=== PATIENT | male | born 2000 | race Caucasian/White ===

== ENCOUNTER 2023-02-25 17:08 | Emergency (ER) | payer MEDICAID, OTHER ==
[~2023-02-25] VITALS: Ht 175.3 cm; Wt 65.8 kg
[2023-02-25 18:25] LABS: BASO # 0.1 10^3/uL (0.0-0.2); BASO % 0.2 % (0.0-1.0); HEMATOCRIT 52.2 % (42.0-52.0); HEMOGLOBIN 18.4 g/dl (13.5-17.5); LYMPH # 1.2 10^3/uL (1.5-5.0); LYMPH % 5.5 % (24.0-44.0); MEAN CORPUSCULAR HEMOGLOBIN 30.4 pg (27.0-33.0); MEAN CORPUSCULAR HGB CONC 35.2 g/dl (32.0-36.5); MEAN CORPUSCULAR VOLUME 86.3 fl (80.0-96.0); MONO % 8.4 % (2.0-8.0); NEUTROPHILS # 17.7 10^3/uL (1.5-8.5); NEUTROPHILS % 85.4 % (36.0-66.0); PLATELET COUNT, AUTOMATED 287 10^3/uL (150-450); RED BLOOD COUNT 6.05 10^6/uL (4.30-6.10); WHITE BLOOD COUNT 20.8 10^3/uL (4.0-10.0)
[2023-02-25 18:31] LABS: INR 1.11
[2023-02-25 18:32] LABS: PARTIAL THROMBOPLASTIN TIME 32.5 SECONDS (24.8-34.2)
[2023-02-25 18:44] LABS: LIPASE 22 U/L (12-53)
[2023-02-25 18:45] LABS: AMYLASE 95 U/L (30-118)
[2023-02-25 18:46] LABS: ALBUMIN 5.1 G/DL (3.2-5.2); ALKALINE PHOSPHATASE 103 U/L (46-116); ALT/SGPT 38 U/L (7.0-40); AST/SGOT 16 U/L (<34); BILIRUBIN,DIRECT 0.3 MG/DL (<0.4); BILIRUBIN,TOTAL 1.1 MG/DL (0.3-1.2); BLOOD UREA NITROGEN 25 MG/DL (9-23); CALCIUM LEVEL 10.4 MG/DL (8.5-10.1); CARBON DIOXIDE LEVEL 26 MMOL/L (20-31); CHLORIDE LEVEL 100 MMOL/L (98-107); CREATININE FOR GFR 0.78 MG/DL (0.70-1.30); GLOMERULAR FILTRATION RATE > 60.0 (>60); GLUCOSE, FASTING 129 MG/DL (60-100); SODIUM LEVEL 139 MMOL/L (136-145)
[2023-02-25 18:54] LABS: MONO # 1.7 10^3/uL (0.0-0.8)
[2023-02-25] MEDS ORDERED: NS 1,000 ML IV ONE (19:25)
[2023-02-25] MEDS ORDERED: HALOPERIDOL 5MG/ML 1ML VIAL IV ONE (20:20)
[2023-02-25] MEDS ORDERED: PANTOPRAZOLE 40MG VIAL IV ONE (20:20)
[2023-02-25] MEDS ORDERED: PIPERACILLIN/TAZOBACTAM SOD 3.375 GM in D5W MINI-BAG PLUS 50 ML IV ONE (20:20)
[2023-02-25] MEDS ORDERED: ISOVUE-370 76% 100ML VIAL As Ordered ONE (20:25)
[2023-02-25 20:28] LABS: RSV AMPLIFICATION NEGATIVE (NEGATIVE)
[2023-02-25] MEDS ORDERED: LORazepam 2 MG/ML 1ML VIAL IV STA (21:23)
[2023-02-25 21:40] VITALS: BP 135/85; TEMP 98.3; O2SAT 95
== END 2023-02-25 22:42 | disposition home or self-care (01) ==
LOC: M ED 17:08
DX: K92.2 Gastrointestinal hemorrhage, unspecified (principal); R11.2 Nausea with vomiting, unspecified
CPT/HCPCS: 74177; 80048; 80076; 81001; 82150; 83605; 83690; 85025; 85610; 85730; 87631; 96361; 96365; 96375; 99284; C9113; J1630; J2543; Q9967